=== PATIENT | female | born 1975 | race American Indian/Alaskan Native ===

== ENCOUNTER 2020-07-12 09:54 | Emergency (ER) | payer OTHER ==
[2020-07-12] MEDS ORDERED: dexAMETHasone 20 MG/5 ML VIAL IM ONE (10:35)
[2020-07-12] MEDS ORDERED: ALBUTEROL 2.5 MG/3 ML NEBU IH ONE (10:35)
[2020-07-12] MEDS ORDERED: IPRATROPIUM 0.02% NEBU 2.5 ML IH ONE (10:35)
--- NOTE | 2020-07-12 10:36 | XRay Report ---
. CHEST 1 VIEW INDICATION / CLINICAL INFORMATION: cough and congestion x 1 month. COMPARISON: None available. FINDINGS: SUPPORT DEVICES: None. HEART / MEDIASTINUM: No significant abnormality. LUNGS / PLEURA: No significant pulmonary or pleural abnormality. No pneumothorax. ADDITIONAL FINDINGS: No significant additional findings. IMPRESSION: 1. No acute findings. Signer Name: Manjit Ferro MD Signed: 07/12/2020 10:31 AM Workstation Name: [id number]
--- NOTE | 2020-07-12 11:13 | Emergency Department Report ---
- General Chief Complaint: Upper Respiratory Infection Stated Complaint: CONGESTION/SOB Time Seen by Provider: 07/12/20 10:29 Source: patient Mode of arrival: Ambulatory Limitations: No Limitations - History of Present Illness Initial Comments: Patient is a 45-year-old female presents emergency room with complaints of a productive cough that began June 17. She states initially it was a mucus production but has now turned into a white sputum production. She has associated chest congestion, wheezing, shortness of breath. She denies any nausea, vomiting, diarrhea, fever, abdominal pain, chest pain. She states that on June 19 she had a laminectomy and she was wheezing also at that time and they had given her a breathing treatment. She denies any recent antibiotics. She states that she recently stopped smoking in May 2020. He has a past medical history of thyroidectomy for goiter and depression. No allergies to medications. - Related Data Previous Rx's Medication Instructions Recorded Last Taken Type Albuterol Sulfate [Proventil Hfa] 6.7 gm IH TID PRN #1 hfa.aer.ad 07/12/20 Unknown Rx Azithromycin [Zithromax TAB] 250 mg PO QDAY 5 Days #6 tablet 07/12/20 Unknown Rx Doxycycline Hyclate [Doxycycline 100 mg PO BID 7 Days #14 tab 07/12/20 Unknown Rx Hyclate TAB] Prednisone [predniSONE 10 mg 10 mg PO .TAPER #1 tab.ds.pk 07/12/20 Unknown Rx (6-Day Pack, 21 Tabs)] Allergies Allergy/AdvReac Type Severity Reaction Status Date / Time No Known Allergies Allergy Unverified 07/12/20 10:00 ED Review of Systems ROS: Stated complaint: CONGESTION/SOB Other details as noted in HPI Comment: All other systems reviewed and negative ED Past Medical Hx - Past Medical History Previous Medical History?: Yes Hx Psychiatric Treatment: Yes (Depression) Additional medical history: Thyroid disease - Surgical History Past Surgical History?: Yes Additional Surgical History: back surgery 2004 and 2019, thyroidectomy - Social History Smoking Status: Former Smoker Substance Use Type: Marijuana - Medications Home Medications: Home Medications Medication Instructions Recorded Confirmed Last Taken Type Albuterol Sulfate [Proventil Hfa] 6.7 gm IH TID PRN #1 hfa.aer.ad 07/12/20 Unknown Rx Azithromycin [Zithromax TAB] 250 mg PO QDAY 5 Days #6 tablet 07/12/20 Unknown Rx Doxycycline Hyclate [Doxycycline 100 mg PO BID 7 Days #14 tab 07/12/20 Unknown Rx Hyclate TAB] Prednisone [predniSONE 10 mg 10 mg PO .TAPER #1 tab.ds.pk 07/12/20 Unknown Rx (6-Day Pack, 21 Tabs)] ED Physical Exam - General Limitations: No Limitations General appearance: alert, in no apparent distress - Head Head exam: Present: atraumatic, normocephalic - Eye Eye exam: Present: normal appearance - ENT ENT exam: Present: mucous membranes moist - Respiratory Respiratory exam: Present: wheezes (bilaterally), rhonchi (bilaterally), prolonged expiratory. Absent: respiratory distress, rales, stridor, chest wall tenderness, accessory muscle use - Cardiovascular Cardiovascular Exam: Present: regular rate, normal rhythm, normal heart sounds. Absent: systolic murmur, diastolic murmur, rubs, gallop - Neurological Exam Neurological exam: Present: alert, oriented X3 - Psychiatric Psychiatric exam: Present: normal affect, normal mood - Skin Skin exam: Present: warm, dry, intact ED Course Vital Signs 07/12/20 07/12/20 07/12/20 09:56 10:47 11:52 Temperature 98.1 F 98 F Pulse Rate 103 H 100 H Pulse Rate [ 90 Bilateral] Respiratory 20 18 Rate Respiratory 16 Rate [Bilateral ] Blood Pressure 131/86 Blood Pressure 134/85 [Left] O2 Sat by Pulse 94 97 Oximetry ED Medical Decision Making - Lab Data Vital Signs 07/12/20 07/12/20 07/12/20 09:56 10:47 11:52 Temperature 98.1 F 98 F Pulse Rate 103 H 100 H Pulse Rate [ 90 Bilateral] Respiratory 20 18 Rate Respiratory 16 Rate [Bilateral ] Blood Pressure 131/86 Blood Pressure 134/85 [Left] O2 Sat by Pulse 94 97 Oximetry - Radiology Data Radiology results: report reviewed, image reviewed Ordering Physician: BEAU DUNBAR DO Date of Service: 07/12/20 Procedure(s): XR chest 1V ap Accession Number(s): [id number] cc: BEAU DUNBAR DO Fluoro Time In Minutes: . CHEST 1 VIEW INDICATION / CLINICAL INFORMATION: cough and congestion x 1 month. COMPARISON: None available. FINDINGS: SUPPORT DEVICES: None. HEART / MEDIASTINUM: No significant abnormality. LUNGS / PLEURA: No significant pulmonary or pleural abnormality. No pneumothorax. ADDITIONAL FINDINGS: No significant additional findings. IMPRESSION: 1. No acute findings. Signer Name: Manjit Ferro MD Signed: 07/12/2020 10:31 AM Workstation Name: [id number] Transcribed By: NANCI Dictated By: MANJIT FERRO Electronically Authenticated By: MANJIT FERRO Signed Date/Time: 07/12/20 1031 DD/ 1030 TD/TT: - Medical Decision Making Patient is a 45-year-old female presents emergency room with complaints of a productive cough that began June 17. She states initially it was a mucus production but has now turned into a white sputum production. She has associated chest congestion, wheezing, shortness of breath. She denies any nausea, vomiting, diarrhea, fever, abdominal pain, chest pain. She states that on June 19 she had a laminectomy and she was wheezing also at that time and they had given her a breathing treatment. She denies any recent antibiotics. She states that she recently stopped smoking in May 2020. He has a past medical history of thyroidectomy for goiter and depression. No allergies to medications. Initial vitals with mild tachycardia and mild hypoxia which improved upon repeat. On exam patient has wheezing bilaterally, rhonchi bilaterally, prolonged expiratory phase, no respiratory distress or accessory muscle use. Chest x-ray ordered prior to my examination and shows 1. No acute findings. Patient given neb treatment and IM steroids and symptoms improved and she was feeling much better and ready to go home. On reexamination wheezing has improved but mild wheezing still remains. Patient was ambulated in the emergency department and maintained sats of 95% or greater on room air. Symptoms most likely related to acute bronchitis, patient has had a change in her sputum production, this is been ongoing for 3 weeks, patient will be covered with antibiotics. Patient given prescription for doxycycline, azithromycin, prednisone, albuterol inhaler. Advised patient Please take medication as prescribed. Please follow-up with a primary care doctor for reexamination. Return to emergency room immediately for any new or worsening symptoms. Discussed strict return precautions with patient. - Differential Diagnosis URI, PNA, acute bronchitis, COPD, viral syndrome, asthma, reactive airway Critical care attestation.: If time is entered above; I have spent that time in minutes in the direct care of this critically ill patient, excluding procedure time. ED Disposition Clinical Impression: Acute bronchitis Qualifiers: Bronchitis organism: unspecified organism Qualified Code(s): J20.9 - Acute bronchitis, unspecified Disposition: DC-01 TO HOME OR SELFCARE Is pt being admited?: No Does the pt Need Aspirin: No Condition: Stable Instructions: Acute Bronchitis (ED) Additional Instructions: Please take medication as prescribed. Please follow-up with a primary care doctor for reexamination. Return to emergency room immediately for any new or worsening symptoms. Prescriptions: Doxycycline Hyclate [Doxycycline Hyclate TAB] 100 mg PO BID 7 Days #14 tab Prednisone [predniSONE 10 mg (6-Day Pack, 21 Tabs)] 10 mg PO .TAPER #1 tab.ds.pk Albuterol Sulfate [Proventil Hfa] 6.7 gm IH TID PRN #1 hfa.aer.ad PRN Reason: Wheezing Azithromycin [Zithromax TAB] 250 mg PO QDAY 5 Days #6 tablet Referrals: PRIMARY CARE, [Primary Care Provider] - 2-3 Days Time of Disposition: 12:03 Print Language: ARABIC
[2020-07-12 11:56] VITALS: BP 134/85
== END 2020-07-12 12:15 | disposition home or self-care (01) ==
LOC: ED 09:54
DX: J20.9 Acute bronchitis, unspecified (principal); F32.9 Major depressive disorder, single episode, unspecified; F12.10 Cannabis abuse, uncomplicated; Z90.89 Acquired absence of other organs; Z98.890 Other specified postprocedural states; Z87.891 Personal history of nicotine dependence; Z79.2 Long term (current) use of antibiotics; Z79.899 Other long term (current) drug therapy
CPT/HCPCS: 71045; 94640; 96372; 99283; J1100; 94644

== ENCOUNTER 2022-02-24 13:13 | Emergency (ER) | payer SELFPAY ==
[2022-02-24 14:25] VITALS: BP 124/86
== END 2022-02-25 15:34 | disposition left against medical advice (07) ==
LOC: ED 13:13
DX: R10.32 Left lower quadrant pain (principal); R11.2 Nausea with vomiting, unspecified; Z53.21 Procedure and treatment not carried out due to patient leaving prior to being seen by health care provider